=== PATIENT | male | born 1960 | race Caucasian/White ===

== ENCOUNTER 2018-09-26 10:39 | Day surgery (SDC) | payer OTHER ==
[2018-09-20 12:45] VITALS: BMI 34.7
[~2018-09-26 10:39] MED LIST: LACTATED RINGERS 1,000 ML IV SCH
[2018-09-26] MEDS ORDERED: LIDOCAINE 1% 20 ML VIAL (10MG/ML) FOR IV START INTRADERMA ONE (10:46)
[2018-09-26 10:52] VITALS: TEMP 97.1
[2018-09-26] MEDS ORDERED: PROPOFOL 10 MG/ML 20 ML VIAL IV ONE (11:13)
--- NOTE | 2018-09-26 11:40 | P.OP ---
Date of Procedure: 09/26/18 Preoperative Diagnosis: Screening Postoperative Diagnosis: Polyp of the sigmoid colon, polyp of descending colon Procedure(s) Performed: Colonoscopy with hot snare polypectomy Surgeon: Triston Gill Pathology: other (Sigmoid polyp, descending colon polyp) Condition: stable Disposition: same day Indications for Procedure: 57-year-old male presents for screening colonoscopy. Risks, benefits and alternatives were provided to the patient. He did provide consent prior to attending the endoscopy suite Operative Findings: Sigmoid colon polyp Descending colon polyp Diverticulosis Description of Procedure: The patient was brought into the endoscopy suite. He was then placed in left lateral decubitus position and adequate sedation was achieved using conscious sedation. A digital rectal exam was performed and mild internal hemorrhoids were palpated. An endoscope was then placed in the rectum and advanced to the cecum as identified by landmarks including the appendiceal orifice and the ileocecal valve. The prep was good. The colonoscope was then slowly withdrawn, examining for any mucosal abnormalities. The cecum, ascending, transverse, descending and sigmoid colon were visualized adequately. There were no large neoplastic lesions noted throughout the colon. There was evidence of polyps in the sigmoid and descending colon. Both polyps were removed with hot snare polypectomy. Hemostasis was maintained. There was a mild amount of diverticulosis noted in the sigmoid colon. Retroflexion was performed in the rectum and mild internal hemorrhoids were visible. Excess air was removed. The colonoscope withdrawn and the procedure terminated. The patient was then transferred to the recovery unit in stable condition. Repeat colonoscopy should be performed in 5 years.
[2018-09-26 11:53] VITALS: BP 129/80; PULSE 53; RESP 18
== END 2018-09-26 12:04 | disposition home or self-care (01) ==
LOC: ORWHC2ENDO 10:39
PROVIDERS: ATTEND Surgery
DX: Z12.11 Encounter for screening for malignant neoplasm of colon (principal); D12.5 Benign neoplasm of sigmoid colon; D12.4 Benign neoplasm of descending colon; K64.8 Other hemorrhoids; K57.30 Diverticulosis of large intestine without perforation or abscess without bleeding; A60.00 Herpesviral infection of urogenital system, unspecified; E66.9 Obesity, unspecified; Z68.34 Body mass index [BMI] 34.0-34.9, adult
CPT/HCPCS: 88305; 45385; J2704